=== PATIENT | female | born 1980 | race Caucasian/White ===

== ENCOUNTER → 2017-09-22 | Outpatient (CLI) | payer OTHER ==
--- NOTE | 2017-09-22 13:05 | CT ---
EXAMINATION TYPE: CT brain w con DATE OF EXAM: 09/22/2017 COMPARISON: NONE HISTORY: Dizziness, headache and balance issues without injury CT DLP: 1036 mGycm Automated Exposure Control for Dose Reduction was Utilized. TECHNIQUE: CT scan of the head is performed with IV contrast.,CT scan of the head is performed withou t and with with IV Contrast, patient injected with 100 mL of Omnipaque 300. FINDINGS: Noncontrast images show no acute intracranial hemorrhage or midline shift. The ventricles and sulci are within normal limits in size. No hydrocephalus. No suspicious extra axial fluid collec tion. No evidence of vasogenic edema or enhancing intracranial mass. Pituitary gland is unremarkable. Postcontrast images show no suspicious enhancing intraparenchymal mass. The globes are intact and th e visualized sinuses are clear. IMPRESSION: Unremarkable enhanced head CT exam with no evidence of intracranial enhancing mass. If th ere is further clinical concern MR could be performed.
== END | disposition home or self-care (01) ==
LOC: RADCTMAIN 12:15
PROVIDERS: ATTEND Internal Medicine
DX: R42 Dizziness and giddiness (principal)
CPT/HCPCS: 70460; Q9967

== ENCOUNTER 2017-09-29 08:33 | Emergency (ER) | payer OTHER ==
[2017-09-29] MEDS ORDERED: SODIUM CHLORIDE 0.9% 1,000 ML IV STA (09:01)
[2017-09-29] MEDS ORDERED: KETOROLAC 30 MG/ML 1 ML VIAL IVP STA (09:01)
[2017-09-29] MEDS ORDERED: RX INFO: IV CONTRAST WAS GIVEN 1 EACH MISC MISCELLANE PRN (09:01)
--- NOTE | 2017-09-29 09:51 | ED ---
Abdominal Pain HPI - General Chief Complaint: Abdominal Pain Stated Complaint: Abd.pain Time Seen by Provider: 09/29/17 08:49 Source: patient, RN notes reviewed Mode of arrival: ambulatory Limitations: no limitations - History of Present Illness Initial Comments: This a 37-year-old female presents emergency Department with chief complaint of right-sided abdominal pain, right back pain. 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 Patient states that her pain feels very similar. She states her last 2-3 days she's had unbearable symptoms. She did try Motrin yesterday. She denies any dysuria hematuria. Denies any vaginal bleeding vaginal discharge. Patient states that stating it makes this symptoms feel better if symptoms twisting bending does makes symptoms worse. She does have a history of herniated disc but states this feels different. Denies any bowel bladder incontinence or retention. Denies any saddle anesthesias or lower extremity paresthesias. believes that the symptoms are consistent with endometriosis. She has not had any current OB/ CAFETERIA ASSISTANT. - Related Data Home Medications Medication Instructions Recorded Confirmed HYDROcodone/APAP 5-325MG [Olga 1 tab PO BID PRN 09/29/17 09/29/17 5-325] Ibuprofen [Motrin] 800 mg PO TID PRN 09/29/17 09/29/17 Meclizine [Antivert] 25 mg PO DAILY PRN 09/29/17 09/29/17 Milk Thistle 150 mg PO DAILY 09/29/17 09/29/17 Niacin 500 mg PO DAILY 09/29/17 09/29/17 [place]-3 Fatty Acids/Fish Oil [Fish 1 cap PO DAILY 09/29/17 09/29/17 Oil 1,000 mg Softgel] clonazePAM [KlonoPIN] 0.5 mg PO DAILY PRN 09/29/17 09/29/17 Previous Rx's Medication Instructions Recorded Hydrocodone/Acetaminophen [Olga 1 tab PO Q6HR PRN #15 tab 09/29/17 5-325] Allergies Allergy/AdvReac Type Severity Reaction Status Date / Time No Known Allergies Allergy Verified 09/29/17 09:10 Review of Systems ROS Statement: Those systems with pertinent positive or pertinent negative responses have been documented in the HPI. ROS Other: All systems not noted in ROS Statement are negative. Past Medical History Additional Past Medical History / Comment(s): ENDOMETRIOSIS, bulging disk in lower back, degenerative disc disease, history of PVCs History of Any Multi-Drug Resistant Organisms: None Reported Additional Past Surgical History / Comment(s): OVARY, FALLOPIAN TUBE REMOVAL, endometriosis Past Anesthesia/Blood Transfusion Reactions: No Reported Reaction Past Psychological History: Anxiety, Depression, PTSD Smoking Status: Current every day smoker Past Alcohol Use History: Occasional Past Drug Use History: Cocaine, Marijuana, Prescription Drug Abuse - Past Family History Mother Family Medical History: AFIB, Congestive Heart Failure (CHF), COPD, Coronary Artery Disease (CAD), Dementia, Diabetes Mellitus Father History Unknown: Yes General Exam Limitations: no limitations General appearance: alert, in no apparent distress Head exam: Present: atraumatic, normocephalic, normal inspection Respiratory exam: Present: normal lung sounds bilaterally. Absent: respiratory distress, wheezes, rales, rhonchi, stridor Cardiovascular Exam: Present: regular rate, normal rhythm, normal heart sounds. Absent: systolic murmur, diastolic murmur, rubs, gallop, clicks GI/Abdominal exam: Present: soft, tenderness (Mild tenderness in the right side of the abdomen), normal bowel sounds. Absent: distended, guarding, rebound, rigid Back exam: Present: normal inspection, full ROM, tenderness, paraspinal tenderness. Absent: CVA tenderness (R), CVA tenderness (L), vertebral tenderness Skin exam: Present: warm, dry, intact, normal color. Absent: rash Course Vital Signs 09/29/17 08:45 Temperature 97.4 F L Pulse Rate 71 Respiratory 16 Rate Blood Pressure 137/90 O2 Sat by Pulse 97 Oximetry Medical Decision Making - Medical Decision Making 37-year-old female presented emergency Department chief complaint of right- sided abdominal and back pain. Patient does have a history of endometriosis. Patient does have a cyst noted on CT. Patient's prior CONVERTER SKIMMER Dr. Eugenio Valles discuss case with me from her prior history recommended patient be referred to on-call CONVERTER SKIMMER. Patient we given Dr. Ly's phone number. She does need insurance referral from primary care physician. - Lab Data Result diagrams: 09/29/17 10:12 09/29/17 10:12 Lab Results 09/29/17 09/29/17 09/29/17 Range/Units 10:12 10:12 10:12 WBC 5.9 (3.8-10.6) k/uL RBC 4.83 (3.80-5.40) m/uL Hgb 14.8 (11.4-16.0) gm/dL Hct 43.6 (34.0-46.0) % MCV 90.3 (80.0-100.0) fL MCH 30.7 (25.0-35.0) pg MCHC 34.0 (31.0-37.0) g/dL RDW 12.8 (11.5-15.5) % Plt Count 205 (150-450) k/uL Neutrophils % 46 % Lymphocytes % 41 % Monocytes % 7 % Eosinophils % 2 % Basophils % 0 % Neutrophils # 2.8 (1.3-7.7) k/uL Lymphocytes # 2.4 (1.0-4.8) k/uL Monocytes # 0.4 (0-1.0) k/uL Eosinophils # 0.1 (0-0.7) k/uL Basophils # 0.0 (0-0.2) k/uL PT (9.0-12.0) sec INR (<1.2) APTT (22.0-30.0) sec Sodium 143 (137-145) mmol/L Potassium 4.3 (3.5-5.1) mmol/L Chloride 105 (98-107) mmol/L Carbon Dioxide 26 (22-30) mmol/L Anion Gap 12 mmol/L BUN 21 H (7-17) mg/dL Creatinine 0.64 (0.52-1.04) mg/dL Est GFR (CKD-EPI)AfAm >90 (>60 ml/min/1.73 sqM) Est GFR (CKD-EPI)NonAf >90 (>60 ml/min/1.73 sqM) Glucose 88 (74-99) mg/dL Plasma Lactic Acid Hong (0.7-2.0) mmol/L Calcium 9.7 (8.4-10.2) mg/dL Total Bilirubin 0.5 (0.2-1.3) mg/dL AST 25 (14-36) U/L ALT 34 (9-52) U/L Alkaline Phosphatase 57 (38-126) U/L Total Protein 8.0 (6.3-8.2) g/dL Albumin 4.9 (3.5-5.0) g/dL Amylase 78 (30-110) U/L Lipase 128 (23-300) U/L Urine Color Urine Appearance (Clear) Urine pH (5.0-8.0) Ur Specific [place] (1.001-1.035) Urine Protein (Negative) Urine Glucose (UA) (Negative) Urine Ketones (Negative) Urine Blood (Negative) Urine Nitrite (Negative) Urine Bilirubin (Negative) Urine Urobilinogen (<2.0) mg/dL Ur Leukocyte Esterase (Negative) Urine HCG, Qual Not Detected (Not Detectd) 09/29/17 09/29/17 09/29/17 Range/Units 10:12 10:12 10:12 WBC (3.8-10.6) k/uL RBC (3.80-5.40) m/uL Hgb (11.4-16.0) gm/dL Hct (34.0-46.0) % MCV (80.0-100.0) fL MCH (25.0-35.0) pg MCHC (31.0-37.0) g/dL RDW (11.5-15.5) % Plt Count (150-450) k/uL Neutrophils % % Lymphocytes % % Monocytes % % Eosinophils % % Basophils % % Neutrophils # (1.3-7.7) k/uL Lymphocytes # (1.0-4.8) k/uL Monocytes # (0-1.0) k/uL Eosinophils # (0-0.7) k/uL Basophils # (0-0.2) k/uL PT 10.5 (9.0-12.0) sec INR 1.1 (<1.2) APTT 26.0 (22.0-30.0) sec Sodium (137-145) mmol/L Potassium (3.5-5.1) mmol/L Chloride (98-107) mmol/L Carbon Dioxide (22-30) mmol/L Anion Gap mmol/L BUN (7-17) mg/dL Creatinine (0.52-1.04) mg/dL Est GFR (CKD-EPI)AfAm (>60 ml/min/1.73 sqM) Est GFR (CKD-EPI)NonAf (>60 ml/min/1.73 sqM) Glucose (74-99) mg/dL Plasma Lactic Acid [place] 0.7 (0.7-2.0) mmol/L Calcium (8.4-10.2) mg/dL Total Bilirubin (0.2-1.3) mg/dL AST (14-36) U/L ALT (9-52) U/L Alkaline Phosphatase (38-126) U/L Total Protein (6.3-8.2) g/dL Albumin (3.5-5.0) g/dL Amylase (30-110) U/L Lipase (23-300) U/L Urine Color Light Yellow Urine Appearance Clear (Clear) Urine pH 6.0 (5.0-8.0) Ur Specific [place] 1.009 (1.001-1.035) Urine Protein Negative (Negative) Urine Glucose (UA) Negative (Negative) Urine Ketones Negative (Negative) Urine Blood Negative (Negative) Urine Nitrite Negative (Negative) Urine Bilirubin Negative (Negative) Urine Urobilinogen <2.0 (<2.0) mg/dL Ur Leukocyte Esterase Negative (Negative) Urine HCG, Qual (Not Detectd) Disposition Clinical Impression: Ovarian cyst, Abdominal pain Disposition: HOME SELF-CARE Condition: Stable Instructions: Abdominal Pain (ED) Additional Instructions: Please return to the Emergency Department if symptoms worsen or any other concerns. Prescriptions: Hydrocodone/Acetaminophen [Olga 5-325] 1 tab PO Q6HR PRN #15 tab PRN Reason: Pain Referrals: Jamar Sparks MD [Primary Care Provider] - 1-2 days Ac Iverson MD [STAFF PHYSICIAN] - 1-2 days Time of Disposition: 11:34
[2017-09-29 10:18] LABS: Appearance,Urine Clear (Clear); Basophils % (A) 0 %; Bilirubin,Urine Negative (Negative); Blood,Urine Negative (Negative); Color,Urine Light Yellow; Eosinophils # (A) 0.1 k/uL (0-0.7); Eosinophils % (A) 2 %; Glucose,Urine (UA) Negative (Negative); HCT 43.6 % (34.0-46.0); HGB 14.8 gm/dL (11.4-16.0); Ketones,Urine Negative (Negative); Leukocyte Esterase,Urine Negative (Negative); Lymphocytes # (A) 2.4 k/uL (1.0-4.8); Lymphocytes % (A) 41 %; MCH 30.7 pg (25.0-35.0); MCV 90.3 fL (80.0-100.0); Mean Platelet Volume 7.6; Monocytes # (A) 0.4 k/uL (0-1.0); Monocytes % (A) 7 %; Neutrophils # (A) 2.8 k/uL (1.3-7.7); Neutrophils % (A) 46 %; Nitrite,Urine Negative (Negative); Platelet Count 205 k/uL (150-450); Protein,Urine Negative (Negative); RBC 4.83 m/uL (3.80-5.40); RDW 12.8 % (11.5-15.5); Specific Gravity,Urine 1.009 (1.001-1.035); Urobilinogen,Urine <2.0 mg/dL (<2.0); WBC 5.9 k/uL (3.8-10.6)
[2017-09-29 10:26] LABS: INR 1.1 (<1.2); Prothrombin Time 10.5 sec (9.0-12.0)
[2017-09-29 10:33] LABS: ALT 34 U/L (9-52); AST 25 U/L (14-36); Albumin 4.9 g/dL (3.5-5.0); Alkaline Phosphatase 57 U/L (38-126); Amylase 78 U/L (30-110); Anion Gap 12 mmol/L; Blood Urea Nitrogen 21 mg/dL (7-17); Calcium 9.7 mg/dL (8.4-10.2); Carbon Dioxide 26 mmol/L (22-30); Chloride 105 mmol/L (98-107); Glucose 88 mg/dL (74-99); Lipase 128 U/L (23-300); Potassium 4.3 mmol/L (3.5-5.1); Sodium 143 mmol/L (137-145); Total Bilirubin 0.5 mg/dL (0.2-1.3)
[2017-09-29] MEDS ORDERED: ONDANSETRON 4 MG/2 ML VIAL IVP STA (10:45)
--- NOTE | 2017-09-29 11:07 | CT ---
EXAMINATION TYPE: CT abdomen pelvis w con DATE OF EXAM: 09/29/2017 COMPARISON: NONE HISTORY: RLQ pain with history of endometriosis CT DLP: 1000 mGycm CONTRAST: CT scan of the abdomen and pelvis is performed without Oral Contrast and with IV Contrast, patient in jected with 100 mL of Isovue 300. FINDINGS: LUNG BASES-: No visible nodule. No infiltrate. LIVER/GB: No calcified gallstones. No space occupying hepatic lesion. Biliary tree is of normal ca liber. PANCREAS: No inflammation. No distinct mass. SPLEEN: No splenic enlargement. No lesion seen. ADRENALS: No nodule. No thickening. KIDNEYS/BLADDER: No hydronephrosis. Nonobstructing calculus lower pole left kidney. No distinct benito l mass. Urinary bladder grossly unremarkable. BOWEL: Normal appendix. Normal bowel caliber. No inflammation. GENITAL ORGANS: The uterus is grossly unremarkable. Right ovarian cyst measuring 2.2 cm. Left ovary unremarkable. LYMPH NODES: No greater than 1cm abdominal or pelvic lymph nodes are appreciated. AORTA: No significant abnormality. OSSEOUS STRUCTURES: No significant abnormality is seen. OTHER: No significant additional abnormality is seen. IMPRESSION: 1. Nonobstructing calculus lower pole left kidney. 2. Probable functional right ovarian cyst.
[2017-09-29] MEDS ORDERED: HYDROcodone/APAP 5-325MG 1 EACH TAB PO STA (11:35)
[2017-09-29 11:46] VITALS: BP 138/87; PULSE 78; RESP 18; TEMP 97.5
== END 2017-09-29 11:56 | disposition home or self-care (01) ==
LOC: EC 08:33
DX: N83.201 Unspecified ovarian cyst, right side (principal); M51.36 Other intervertebral disc degeneration, lumbar region; F17.200 Nicotine dependence, unspecified, uncomplicated; Z87.42 Personal history of other diseases of the female genital tract; Z90.721 Acquired absence of ovaries, unilateral; Z79.899 Other long term (current) drug therapy
CPT/HCPCS: 36415; 80053; 82150; 83605; 83690; 85025; 85610; 85730; 81003; 81025; 74177; 99284; 96374; 96375; 96361 ×2; J2405; J1885; Q9967

== ENCOUNTER 2017-10-02 12:09 | Emergency (ER) | payer OTHER ==
[2017-10-02 13:49] LABS: Basophils % (A) 1 %; Eosinophils # (A) 0.2 k/uL (0-0.7); Eosinophils % (A) 2 %; HCT 42.4 % (34.0-46.0); HGB 14.3 gm/dL (11.4-16.0); Lymphocytes # (A) 2.8 k/uL (1.0-4.8); Lymphocytes % (A) 40 %; MCH 30.5 pg (25.0-35.0); MCHC 33.8 g/dL (31.0-37.0); MCV 90.3 fL (80.0-100.0); Mean Platelet Volume 7.4; Monocytes # (A) 0.4 k/uL (0-1.0); Monocytes % (A) 6 %; Neutrophils # (A) 3.4 k/uL (1.3-7.7); Neutrophils % (A) 49 %; Platelet Count 223 k/uL (150-450); RBC 4.69 m/uL (3.80-5.40); RDW 12.9 % (11.5-15.5)
[2017-10-02 13:52] LABS: Appearance,Urine Clear (Clear); Bilirubin,Urine Negative (Negative); Blood,Urine Negative (Negative); Color,Urine Colorless; Glucose,Urine (UA) Negative (Negative); Ketones,Urine Negative (Negative); Leukocyte Esterase,Urine Negative (Negative); Nitrite,Urine Negative (Negative); PH, Urine 6.5 (5.0-8.0); Protein,Urine Negative (Negative); Specific Gravity,Urine 1.006 (1.001-1.035); Urobilinogen,Urine <2.0 mg/dL (<2.0)
[2017-10-02 14:03] LABS: ALT 24 U/L (9-52); AST 23 U/L (14-36); Alkaline Phosphatase 57 U/L (38-126); Amylase 85 U/L (30-110); Anion Gap 15 mmol/L; Blood Urea Nitrogen 22 mg/dL (7-17); Calcium 9.8 mg/dL (8.4-10.2); Carbon Dioxide 25 mmol/L (22-30); Chloride 103 mmol/L (98-107); Glucose 89 mg/dL (74-99); Lipase 196 U/L (23-300); Potassium 4.2 mmol/L (3.5-5.1); Sodium 143 mmol/L (137-145); Total Bilirubin 0.4 mg/dL (0.2-1.3); Total Protein 8.4 g/dL (6.3-8.2)
[2017-10-02] MEDS ORDERED: ONDANSETRON 4 MG/2 ML VIAL IVP STA (14:58)
--- NOTE | 2017-10-02 15:04 | ED ---
Female Urogenital HPI - General Chief complaint: Urogenital Stated complaint: Urogenital, ABd Pain Time Seen by Provider: 10/02/17 14:47 Source: patient Mode of arrival: ambulatory Limitations: no limitations - History of Present Illness Initial comments: 37-year-old female with history of endometriosis and left oophorectomy presenting with right lower quadrant sharp stabbing abdominal pain that radiates the right flank, is constant, is not alleviated or exacerbated by anything, and is accompanied by nausea. States she was in the emergency department on 09/29 and was diagnosed with a right ovarian cyst. Patient states she has been trying to follow up with [facility] INSPECT[facility] as instructed however has been unable to obtain appointment. She states she is unable to tolerate the pain anymore. Last Menstrual Period: 08/07/17 - Related Data Home Medications Medication Instructions Recorded Confirmed Ibuprofen [Motrin] 800 mg PO TID PRN 09/29/17 10/02/17 Meclizine [Antivert] 25 mg PO DAILY PRN 09/29/17 10/02/17 Milk Thistle 150 mg PO DAILY 09/29/17 10/02/17 Niacin 500 mg PO DAILY 09/29/17 10/02/17 [place]-3 Fatty Acids/Fish Oil [Fish 1 cap PO DAILY 09/29/17 10/02/17 Oil 1,000 mg Softgel] clonazePAM [KlonoPIN] 0.5 mg PO DAILY PRN 09/29/17 10/02/17 Previous Rx's Medication Instructions Recorded Hydrocodone/Acetaminophen [[place] 1 tab PO Q6HR PRN #15 tab 09/29/17 5-325] Ondansetron Odt [Zofran Odt] 4 mg PO Q8HR PRN #10 tab 10/02/17 Allergies Allergy/AdvReac Type Severity Reaction Status Date / Time No Known Allergies Allergy Verified 10/02/17 15:00 Review of Systems ROS Statement: Those systems with pertinent positive or pertinent negative responses have been documented in the HPI. Review of Systems Constitutional: Denies fever, chills Eyes: Denies change in vision, Denies pain Ears, nose, mouth, throat: Denies headaches, Denies sore throat Cardiovascular: Denies chest pain. Denies palpitations Respiratory: Denies shortness of breath, Denies cough Gastrointestinal: Positive abdominal pain and nausea. Denies vomiting, diarrhea. Genitourinary: Denies hematuria, Denies infections Musculoskeletal: Denies pain, Denies swelling Integumentary: Denies rash Neurological: Denies headache, focal weakness, focal numbness Psychiatric: Denies anxiety, Denies depression Hematologic/Lymphatic: Denies easy bleeding or bruising ROS Other: All systems not noted in ROS Statement are negative. Past Medical History Additional Past Medical History / Comment(s): ENDOMETRIOSIS, bulging disk in lower back, degenerative disc disease, history of PVCs History of Any Multi-Drug Resistant Organisms: None Reported Additional Past Surgical History / Comment(s): OVARY, FALLOPIAN TUBE REMOVAL, endometriosis Past Anesthesia/Blood Transfusion Reactions: No Reported Reaction Past Psychological History: Anxiety, Depression, PTSD Smoking Status: Former smoker Past Alcohol Use History: Occasional Past Drug Use History: Cocaine, Marijuana, Prescription Drug Abuse - Past Family History Mother Family Medical History: AFIB, Congestive Heart Failure (CHF), COPD, Coronary Artery Disease (CAD), Dementia, Diabetes Mellitus Father History Unknown: Yes General Exam - General Exam Comments Initial Comments: General: Awake, alert, No acute Distress HENT: Normocephalic. Atraumatic Eyes: PERRL. EOMI. No scleral icterus. No injected conjunctiva Neck: Full ROM Chest/Lungs: Clear to auscultation bilaterally. No wheezing, rhonchi, or rales Cardiac: Regular rate, rhythm. No murmurs or rubs Abdomen/GI: Soft, nontender, nondistended. No rebound, guarding, or rigidity. Musculoskeletal: Full ROM Skin: Warm, dry, intact Neurologic: A/Ox3, no weakness, no sensory deficit, no abdnormal gait, no coordination deficit Psych: Tearful. Anxious appearing Limitations: no limitations Course Vital Signs 10/02/17 12:20 Temperature 97.4 F L Pulse Rate 86 Respiratory 18 Rate Blood Pressure 133/90 O2 Sat by Pulse 98 Oximetry Medical Decision Making - Medical Decision Making 37-year-old female presenting with abdominal pain. Initial exam the patient is awake, alert, and tearful. She is anxious appearing. Vital signs are stable and her abdomen is nontender and non-peritoneal. [id number] Iverson regarding patient. He states he has not actually seen this patient before but his group is nitric acid concentrator operator for today. The patient's abdomen is nontender on exam. She has no leukocytosis, fever, or abnormal vital signs. Low likelihood appendicitis. She has no IBD history or abdnormal bowel movements at this time. Discussed with patient who states she is comfortable seeing Dr. Iverson within the next 1-2 days. The patient state she has Linden at home and does need a new prescription but would like an rx for Zofran because the Linden causes her nausea. Patient spoke with Dr. Iverson's office and made an appointment. At this time no further emergent workup is indicated. Patient is stable for outpatient follow up of her abdominal pain. There are no signs of life threatening infection. She was given return to ED instructions and discharged in stable condition. - Lab Data Result diagrams: 10/02/17 13:40 10/02/17 13:40 Lab Results 10/02/17 10/02/17 10/02/17 Range/Units 13:40 13:40 13:40 WBC 7.0 (3.8-10.6) k/uL RBC 4.69 (3.80-5.40) m/uL Hgb 14.3 (11.4-16.0) gm/dL Hct 42.4 (34.0-46.0) % MCV 90.3 (80.0-100.0) fL MCH 30.5 (25.0-35.0) pg MCHC 33.8 (31.0-37.0) g/dL RDW 12.9 (11.5-15.5) % Plt Count 223 (150-450) k/uL Neutrophils % 49 % Lymphocytes % 40 % Monocytes % 6 % Eosinophils % 2 % Basophils % 1 % Neutrophils # 3.4 (1.3-7.7) k/uL Lymphocytes # 2.8 (1.0-4.8) k/uL Monocytes # 0.4 (0-1.0) k/uL Eosinophils # 0.2 (0-0.7) k/uL Basophils # 0.0 (0-0.2) k/uL Sodium 143 (137-145) mmol/L Potassium 4.2 (3.5-5.1) mmol/L Chloride 103 (98-107) mmol/L Carbon Dioxide 25 (22-30) mmol/L Anion Gap 15 mmol/L BUN 22 H (7-17) mg/dL Creatinine 0.60 (0.52-1.04) mg/dL Est GFR (CKD-EPI)AfAm >90 (>60 ml/min/1.73 sqM) Est GFR (CKD-EPI)NonAf >90 (>60 ml/min/1.73 sqM) Glucose 89 (74-99) mg/dL Calcium 9.8 (8.4-10.2) mg/dL Total Bilirubin 0.4 (0.2-1.3) mg/dL AST 23 (14-36) U/L ALT 24 (9-52) U/L Alkaline Phosphatase 57 (38-126) U/L Total Protein 8.4 H (6.3-8.2) g/dL Albumin 5.0 (3.5-5.0) g/dL Amylase 85 (30-110) U/L Lipase 196 (23-300) U/L Urine Color Urine Appearance (Clear) Urine pH (5.0-8.0) Ur Specific [place] (1.001-1.035) Urine Protein (Negative) Urine Glucose (UA) (Negative) Urine Ketones (Negative) Urine Blood (Negative) Urine Nitrite (Negative) Urine Bilirubin (Negative) Urine Urobilinogen (<2.0) mg/dL Ur Leukocyte Esterase (Negative) Urine HCG, Qual Not Detected (Not Detectd) 10/02/17 Range/Units 13:40 WBC (3.8-10.6) k/uL RBC (3.80-5.40) m/uL Hgb (11.4-16.0) gm/dL Hct (34.0-46.0) % MCV (80.0-100.0) fL MCH (25.0-35.0) pg MCHC (31.0-37.0) g/dL RDW (11.5-15.5) % Plt Count (150-450) k/uL Neutrophils % % Lymphocytes % % Monocytes % % Eosinophils % % Basophils % % Neutrophils # (1.3-7.7) k/uL Lymphocytes # (1.0-4.8) k/uL Monocytes # (0-1.0) k/uL Eosinophils # (0-0.7) k/uL Basophils # (0-0.2) k/uL Sodium (137-145) mmol/L Potassium (3.5-5.1) mmol/L Chloride (98-107) mmol/L Carbon Dioxide (22-30) mmol/L Anion Gap mmol/L BUN (7-17) mg/dL Creatinine (0.52-1.04) mg/dL Est GFR (CKD-EPI)AfAm (>60 ml/min/1.73 sqM) Est GFR (CKD-EPI)NonAf (>60 ml/min/1.73 sqM) Glucose (74-99) mg/dL Calcium (8.4-10.2) mg/dL Total Bilirubin (0.2-1.3) mg/dL AST (14-36) U/L ALT (9-52) U/L Alkaline Phosphatase (38-126) U/L Total Protein (6.3-8.2) g/dL Albumin (3.5-5.0) g/dL Amylase (30-110) U/L Lipase (23-300) U/L Urine Color Colorless Urine Appearance Clear (Clear) Urine pH 6.5 (5.0-8.0) Ur Specific [place] 1.006 (1.001-1.035) Urine Protein Negative (Negative) Urine Glucose (UA) Negative (Negative) Urine Ketones Negative (Negative) Urine Blood Negative (Negative) Urine Nitrite Negative (Negative) Urine Bilirubin Negative (Negative) Urine Urobilinogen <2.0 (<2.0) mg/dL Ur Leukocyte Esterase Negative (Negative) Urine HCG, Qual (Not Detectd) Disposition Clinical Impression: Ovarian cyst, Abdominal pain Disposition: HOME SELF-CARE Condition: Good Instructions: Abdominal Pain (ED) Additional Instructions: Return to ED if develop fever, vomiting, or worsening abdominal pain. Prescriptions: Ondansetron Odt [Zofran Odt] 4 mg PO Q8HR PRN #10 tab PRN Reason: Nausea And Vomiting Referrals: Jamar Sparks MD [Primary Care Provider] - 1-2 days
[2017-10-02] MEDS ORDERED: MORPHINE SULFATE/PF 10MG/10ML VL IVP STA (15:36)
[2017-10-02 16:42] VITALS: BP 127/84; PULSE 82; RESP 17; TEMP 97.7
[2017-10-02] MEDS ORDERED: KETOROLAC 30 MG/ML 1 ML VIAL IVP SCH (18:00)
== END 2017-10-02 16:41 | disposition home or self-care (01) ==
LOC: EC 12:09
DX: N83.201 Unspecified ovarian cyst, right side (principal); R11.0 Nausea; Z87.42 Personal history of other diseases of the female genital tract; Z79.899 Other long term (current) drug therapy; Z87.891 Personal history of nicotine dependence
CPT/HCPCS: 99284; 96374; 96375 ×2; 36415; 80053; 82150; 83690; 85025; 81003; 81025; J2405; J1885; J2270

== ENCOUNTER → 2017-11-21 | Outpatient (CLI) | payer OTHER ==
[2017-11-21 13:02] LABS: Basophils % (A) 1 %; Eosinophils # (A) 0.1 k/uL (0-0.7); Eosinophils % (A) 2 %; HCT 39.6 % (34.0-46.0); HGB 13.6 gm/dL (11.4-16.0); Lymphocytes # (A) 1.9 k/uL (1.0-4.8); Lymphocytes % (A) 32 %; MCH 31.5 pg (25.0-35.0); MCHC 34.4 g/dL (31.0-37.0); MCV 91.8 fL (80.0-100.0); Mean Platelet Volume 7.5; Monocytes # (A) 0.5 k/uL (0-1.0); Monocytes % (A) 9 %; Neutrophils # (A) 3.2 k/uL (1.3-7.7); Neutrophils % (A) 54 %; Platelet Count 219 k/uL (150-450); RBC 4.32 m/uL (3.80-5.40); WBC 5.9 k/uL (3.8-10.6)
== END | disposition home or self-care (01) ==
LOC: LABPAT 12:39
PROVIDERS: ATTEND Obstetrics & Gynecology
DX: Z01.812 Encounter for preprocedural laboratory examination (principal); N80.9 Endometriosis, unspecified; R10.2 Pelvic and perineal pain; G89.29 Other chronic pain
CPT/HCPCS: 36415; 85025

== ENCOUNTER 2017-12-05 07:44 | Day surgery (SDC) | payer OTHER ==
[2017-11-30 16:02] VITALS: BMI 23.6
[~2017-12-05 07:44] MED LIST: DEXAMETHASONE SOD PHOSPHATE 10 MG/ML 1 ML VIAL IV ONE; LACTATED RINGERS 1,000 ML IV SCH; LIDOCAINE 1% 20 ML VIAL (10MG/ML) FOR IV START INTRADERMA PRN; MIDAZOLAM 2 MG/2 ML VIAL IV PRN; SCOPOLAMINE 1.5MG/72HR PATCH TRANSDERM ONE; ceFAZolin IN SWFI 2 GM/20 ML SYRINGE IVP ONE; fentaNYL (PF) 50 MCG/ML 2 ML AMP IV PRN
[2017-12-05] MEDS: ONDANSETRON 4 MG/2 ML VIAL IVP ONE ×2 (08:49→10:19)
[2017-12-05 08:56] VITALS: RESP 16
[2017-12-05] MEDS ORDERED: fentaNYL (PF) 50 MCG/ML 2 ML AMP ONE (09:05)
[2017-12-05] MEDS ORDERED: ROCURONIUM BROMIDE 10 MG/ML 10 ML VIAL IV ONE (09:05)
[2017-12-05] MEDS ORDERED: PROPOFOL 10 MG/ML 20 ML VIAL IV ONE (09:05)
[2017-12-05] MEDS ORDERED: SUCCINYLCHOLINE CHLORIDE 100 MG/5 ML SYR IV ONE (09:05)
[2017-12-05] MEDS ORDERED: MIDAZOLAM 2 MG/2 ML VIAL ONE (09:05)
[2017-12-05] MEDS ORDERED: LIDOCAINE 1% INJ 10MG/ML (20 ML MDV) ONE (09:05)
[2017-12-05] MEDS ORDERED: IBUPROFEN 600 MG TAB PO PRN (09:08)
[2017-12-05] MEDS ORDERED: METOCLOPRAMIDE 5 MG/ML 2 ML VIAL IVP PRN (09:08)
[2017-12-05] MEDS ORDERED: Acetaminophen-Codeine 300-30mg TAB PO PRN ×2 (09:08)
[2017-12-05] MEDS ORDERED: diphenhydrAMINE 50 MG/ML 1 ML VIAL IVP PRN (09:08)
[2017-12-05] MEDS ORDERED: SIMETHICONE 80 MG CHEWABLE PO PRN (09:08)
[2017-12-05] MEDS ORDERED: KETOROLAC 30 MG/ML 1 ML VIAL IVP PRN (09:08)
[2017-12-05] MEDS ORDERED: ONDANSETRON 4 MG/2 ML VIAL IVP PRN (09:08)
[2017-12-05] MEDS ORDERED: LACTATED RINGERS 1,000 ML IV SCH (09:15)
[2017-12-05] MEDS ORDERED: BUPIVACAINE (PF) 0.5% 30 ML VIAL SQ ONE (09:27)
[2017-12-05] MEDS ORDERED: METHYLENE BLUE 10 MG/ML (10 ML VIAL) INJ ONE (09:27)
[2017-12-05] MEDS ORDERED: LACTATED RINGERS 1,000 ML IV ONE (09:46)
--- NOTE | 2017-12-05 09:49 | P.OP ---
Date of Procedure: 12/05/17 Preoperative Diagnosis: None. History of endometriosis #2. Chronic pelvic pain Postoperative Diagnosis: Same plus #3. 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 Patent right fallopian tube Procedure(s) Performed: #1. Diagnostic laparoscopy #2. Chromopertubation Anesthesia: ALONAA Surgeon: Ac Iverson Estimated Blood Loss (ml): 5 IV fluids (ml): 800 Urine output (ml): 150 Pathology: none sent Condition: stable Disposition: PACU Operative Findings: Preoperative pelvic examination under anesthesia demonstrated a roughly 4 week retroverted and flexed uterus which was somewhat mobile in nature. Intraoperatively, there was no significant endometriosis noted anywhere in the pelvis though the cul-de-sac was somewhat adhesed near the cervix to the rectum although not completely obliterated. The left tube and ovary were absent surgically. The right tube and ovary were normal in appearance with no evidence of endometriosis present. There was perhaps one small powder burn ho on the left cornu of the uterus which was left intact. Methylene blue diluted with normal saline was passed easily through the right fallopian tube with free flow into the pelvis. Description of Procedure: The patient was prepped and draped in usual fashion after general endotracheal anesthesia was administered by the anesthesiologist. A speculum was placed in the anterior lip of the cervix grasped with a single-tooth tenaculum allowing insertion of a kroner uterine manipulator without difficulty after the uterus was sounded to 8 cm in depth. The speculum was removed and the bladder drained of approximately 150 mL of clear tylor urine. Attention was then turned to the abdomen where a 5 mm incision was made in a vertical fold of the umbilicus allowing insertion of a 5 mm optical trocar under direct visualization without difficulty. A pneumoperitoneum was then established. Trendelenburg positioning was utilized to have an early view into the pelvis which appeared relatively free. A site was selected through a pre-existing scar approximately 3-4 cm above the pubic symphysis in the midline where a 5 mm incision was made in the transverse plane through the scar allowing insertion of a 5 mm optical trocar under direct visual station without difficulty. The blunt probe was utilized to sweep the bowel from the pelvis along with further Trendelenburg positioning. Thorough exploration of the pelvis demonstrated the findings as above with some scarring deep in the cul-de-sac between the rectum and the posterior cervix. There were no obvious endometriotic implants anywhere aside from a small powder burn lesion on the left cornu. The left tube and ovary were surgically absent while the right tube and ovary were both free and free of any obvious endometriosis. The appendix, large, and small bowel were entirely normal to inspection. Diluted methylene blue was then injected slowly through the kroner manipulator and passed easily through the fallopian tube fluid freely into the pelvis. After thorough documentation of the findings, the secondary trocar site was removed under direct visualization and the pneumoperitoneum evacuated to the primary trocar site. The trocar was then removed and the skin incisions were closed with interrupted subcuticular stitches of 4-0 Vicryl which were then injected with a total of 10 mL of half percent Marcaine without epinephrine equally divided between the 2 incisions. Estimated blood loss for the case was 5 mL or less. There were no complications. All sponge, instrument, and needle counts were correct. The patient tolerated the procedure well proceeded to the recovery room in stable condition.
[2017-12-05] MEDS: HYDROmorphone 0.5 MG/0.5 ML SYRINGE IVP ONE ×3 (10:00→10:18)
[2017-12-05] MEDS ORDERED: KETOROLAC 30 MG/ML 1 ML VIAL IVP ONE (10:00)
[2017-12-05 10:06] VITALS: TEMP 97.3
[2017-12-05] MEDS ORDERED: ONDANSETRON 4 MG/2 ML VIAL IVP ONE (11:38)
[2017-12-05 12:07] VITALS: BP 111/79; PULSE 73
== END 2017-12-05 12:19 | disposition home or self-care (01) ==
LOC: OR 07:44
PROVIDERS: ATTEND Obstetrics & Gynecology
DX: G89.29 Other chronic pain (principal); R10.2 Pelvic and perineal pain; Z87.42 Personal history of other diseases of the female genital tract; Z79.899 Other long term (current) drug therapy; Z87.891 Personal history of nicotine dependence; F41.9 Anxiety disorder, unspecified; Z79.891 Long term (current) use of opiate analgesic
CPT/HCPCS: 81025; 49320; J2250; J1100; J2405; J2001; Q9968; J3010; J1885; J0330; J2704; J1170; J0690

== ENCOUNTER → 2018-09-25 | Outpatient (CLI) | payer OTHER ==
[2018-09-25 08:41] VITALS: BP 118/83; PULSE 71; RESP 16; TEMP 97.9; BMI 22.3
--- NOTE | 2018-09-25 09:35 | P.PN ---
Progress Note - Text Progress Note Date: 09/25/18 Chief Complaint: menopausal symptoms getting progressively worse over the past 6 months. HPI: This is a 38-year-old G0 with an LMP of April 2018. The patient was previously on oral contraceptives because of her history of endometriosis. The patient states she discontinued them about 2 years ago because of weight gain. She did lose weight after discontinuing the control pills menstrual periods were about every 2 months off of the control pills. She states her menstrual periods were terrible without the control pills. She stopped having periods after April 2018. She started having hot flashes and night sweats which have gradually increased and now become severe and frequent. She states she has hot flashes about every 15 to 30 minutes. She becomes very sweaty. She also has noticed an increase in anxiety and anger. She also gets sad easily and cries easily. She is also had a problem focusing. She denies any suicidal thoughts. She has not been sexually active for more than 3 years. ROS: she has lost about 15 pounds over the last 3 years. She denies respiratory, cardiac, or G.I. problems. PE: Blood pressure: 118/83, Height: 5'4", Weight: hundred 30 pounds, Temperature: 7.9, Pulse: 71. Respiratory rate 16, pulse oximeter 99%. This is a well developed, well nourished, white female who is alert and orientedx3, in no acute distress. Abdomen : soft nontender without palpable masses. Abdomen is nondistended. Pelvic exam: normal external genitalia. There is no cervical motion tenderness. The uterus is slightly retroverted, noncovered size, and nontender. There are no palpable adnexal masses or tenderness. Operative report from 12/05/[address] Iverson: L/S: normal right ovary, absent left ovary consistent with previous oophorectomy. Impression: 1. 38-year-old female status post LSO for an endometrioma in 2009 with a 6 month history of secondary amenorrhea and worsening vasomotor symptoms. Probable premature menopause. 2. Differential diagnosis will also include thyroid dysfunction and ovulation. 3. She also has various other symptoms including anxiety, anger, sadness, and difficulty focusing. These are most likely consistent with premature menopause. Plan: 1. We have had a long discussion regarding her symptoms as well as the possibility of premature menopause. She states she would be interested in low dose HRT if this is because of an early menopause. We've discussed possible risks of HRT including the possible increased risk for heart attack, stroke, and breast cancer. 2. Blood tests today will include: FSH, estradiol, TSH, and CBC. 3. If the blood tests are consistent with the menopause, I will start her on low-dose HRT. If not consistent with the menopause, consider trial of an SSRI. 4. She will return in approximately one month for her annual examination and for reevaluation of her symptoms. Time spent with the patient: 25 minutes
[2018-09-25 10:17] LABS: Basophils % (A) 1 %; Eosinophils # (A) 0.1 k/uL (0-0.7); Eosinophils % (A) 2 %; HCT 41.4 % (34.0-46.0); HGB 13.8 gm/dL (11.4-16.0); Lymphocytes # (A) 1.9 k/uL (1.0-4.8); Lymphocytes % (A) 36 %; MCHC 33.4 g/dL (31.0-37.0); MCV 92.8 fL (80.0-100.0); Mean Platelet Volume 7.3; Monocytes # (A) 0.4 k/uL (0-1.0); Monocytes % (A) 7 %; Neutrophils # (A) 2.7 k/uL (1.3-7.7); Neutrophils % (A) 52 %; Platelet Count 204 k/uL (150-450); RBC 4.46 m/uL (3.80-5.40); RDW 12.7 % (11.5-15.5); WBC 5.3 k/uL (3.8-10.6)
--- NOTE | 2018-09-26 12:37 | P.PN ---
Progress Note - Text Progress Note Date: 09/26/18 OUTPATIENT FOLLOW-UP NOTE TEST(S)/RESULTS: test results from 09/25/2018 include FSH of 147.4, estradiol 14.7, TSH normal, CBC normal. METHOD OF NOTIFICATION: the patient was notified by phone. PATIENT COMMENTS: the patient is very interested in starting HRT. DIAGNOSIS: premature menopause at age 38. DISCUSSION: we have had a long discussion regarding possible risks of HRT including possible risks of blood clots, heart attack, stroke and breast cancer. The patient understands these things and would like to proceed with HRT because of her severe menopausal symptoms. PLAN: the patient will will be started on Estrace 1 mg daily and micronized progesterone 100 mg daily. She will call she has any problems. She will follow-up in one month for a recheck.
== END | disposition home or self-care (01) ==
LOC: WWCWWP 08:08
PROVIDERS: ATTEND Obstetrics & Gynecology
DX: N91.1 Secondary amenorrhea (principal); N95.1 Menopausal and female climacteric states
CPT/HCPCS: 36415; 82670; 83001; 84443; 85025

== ENCOUNTER → 2018-11-27 | Outpatient (CLI) | payer OTHER ==
[2018-11-27 13:15] VITALS: BP 117/75; PULSE 60; RESP 16; TEMP 98.5; BMI 22.6
--- NOTE | 2018-11-27 13:59 | P.HPOB ---
History of Present Illness H&P Date: 11/27/18 Chief Complaint: The patient is here for her routine gynecologic exam. This is a 38-year-old G0 within LMP of 04/2018. The patient was seen about 2 months ago because of menopausal symptoms including amenorrhea, hot flashes, difficulty sleeping, worsening anxiety, moodiness, and cry easily. FSH done on 09/25/2018 was 147, consistent with premature menopause. She was started on Estrace 1 mg daily and micronized progesterone 100 mg daily. She states her hot flashes have improved by about 40%. She denies any vaginal bleeding. She continues to have some difficulty sleeping and is crying easily. She has a history of depression and had used many different antidepression medications in the past. SSRI type medications did not work well I made her feel sick. She states she has done well with Remeron in the past. She denies any suicidal ideation. She states she has not felt comfortable speaking with her primary care physician about her mental health and feels that he did not take her seriously when speaking about this. She has recently noticed some left breast tenderness in the upper outer quadrant during the past 2 weeks. She states it feels lumpy in this area. Review of Systems The patient's weight has been stable over the last year. She denies respiratory, cardiac, or G.I. problems. Past Medical History Additional Past Medical History / Comment(s): bulging disk in lower back, de generative disc disease, history of PVCs. 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 She has a history of endometriosis and is status post LSO and endometrioma in 2009. History of Any Multi-Drug Resistant Organisms: None Reported Additional Past Surgical History / Comment(s): Left OVARY, FALLOPIAN TUBE REMOVAL for endometriosis 2009. Laparoscopy with adhesiolysis 2017. Past Anesthesia/Blood Transfusion Reactions: No Reported Reaction Past Psychological History: Anxiety, Depression, PTSD Additional Psychological History / Comment(s): Patient has history of previous suicide attempts with mental health inpatient admissions. Smoking Status: Former smoker Past Alcohol Use History: None Reported Past Drug Use History: Cocaine, Marijuana, Prescription Drug Abuse Additional Drug Use History / Comment(s): Denies any current drug use. 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 The patient is single and has had homosexual and heterosexual relationships in the past. She is currently not seeing anybody at this time. - Past Family History Mother Family Medical History: AFIB, Congestive Heart Failure (CHF), COPD, Coronary Artery Disease (CAD), Dementia, Diabetes Mellitus Additional Family Medical History / Comment(s): Maternal aunt had breast cancer. Father History Unknown: Yes Medications and Allergies Home Medications Medication Instructions Recorded Confirmed Type Ibuprofen [Motrin] 800 mg PO TID PRN 09/29/17 11/27/18 History clonazePAM [KlonoPIN] 0.5 mg PO DAILY PRN 09/29/17 11/27/18 History Estradiol [Estrace] 1 mg PO DAILY #60 tab 11/20/18 11/27/18 Rx Progesterone, Micronized 100 mg PO DAILY #60 capsule 11/20/18 11/27/18 Rx [Progesterone] Allergies Allergy/AdvReac Type Severity Reaction Status Date / Time No Known Allergies Allergy Verified 11/27/18 13:06 Exam Vital Signs Temp Pulse Resp BP Pulse Ox 11/27/18 13:07 98.5 F 60 16 117/75 100 Intake and Output 11/26/18 11/27/18 11/27/18 22:59 06:59 14:59 Other: Weight 59.874 kg Height 5'4", weight 132 pounds, BMI 22.7. This is a well-developed well-nourished weight female who is alert and oriented times 3 in no acute distress. HEENT: Within normal limits. NECK: Supple without mass or thyromegaly. CHEST AND LUNGS: Clear to auscultation. HEART: Regular rate and rhythm. BREASTS: Are without mass or discharge. There is minimal tenderness in the left upper outer quadrant without palpable mass. There is moderate fibrous tissue throughout both breasts consistent with fibrocystic changes without a discrete mass. AXILLARY EXAM: Negative for adenopathy. BACK: Negative for CVA tenderness. ABDOMEN: Soft, nontender, without palpable masses. PELVIC EXAM: Normal external genitalia. Cervix and vagina appear normal. There is no unusual discharge. There is no evidence of prolapse. The uterus is mi dposition, nongravid size and nontender. There are no palpable adnexal masses or tenderness. RECTAL EXAM: negative for mass or tenderness. EXTREMITIES: Nontender. IMPRESSION: 1. 38-year-old female with history of premature menopause and associated menopausal symptoms who has had mild improvement with continuous HRT. 2. Two-week history of left breast tenderness without palpable mass on exam to day. 3. Worsening of anxiety, mood disorder and crying easily with the onset of her menopausal symptoms. PLAN: 1. Pap smear was performed. 2. Self breast awareness was discussed with the patient. The patient was advised to decrease caffeine intake. She will call in one month if her breast symptoms have not resolved. 3. we will increase her Estrace to 1.5 mg daily. She will continue on the same dose of micronized progesterone 100 mg daily. The electronic prescription [id number]. 4. I have recommended that she find a primary care physician that she feels comfortable talking to about mental health issues. I've also recommended that she consider seeing a psychiatrist if her symptoms are not improving or if symptoms worsen. 5. She was advised to return in one year for her annual well woman exam and PRN.
== END | disposition home or self-care (01) ==
LOC: WWCWWP 11:55
PROVIDERS: ATTEND Obstetrics & Gynecology
DX: Z53.9 Procedure and treatment not carried out, unspecified reason (principal)

== ENCOUNTER → 2020-08-05 | Outpatient (CLI) | payer OTHER ==
[2020-08-05 09:42] VITALS: BP 126/89; PULSE 76; RESP 18; TEMP 98.1
--- NOTE | 2020-08-05 10:35 | P.HPOB ---
History of Present Illness H&P Date: 08/05/20 Chief Complaint: The patient is here for her routine gynecologic exam. This is a 39-year-old G0 with an LMP of April 2018. The patient was found to be menopausal confirmed with an FSH test in 2019. The patient was started on HRT because of significant menopausal symptoms including hot flashes, difficulty sleeping and mood changes. She states she has had dramatic improvement with all of the symptoms and is doing well on estradiol 1.5 mg and progesterone 100 mg daily. After starting HRT she states she had occasional spotting which has now been very rare. She is without gynecologic complaints. Review of Systems The patient has lost 12 pounds over the last year and a half. She denies respiratory, cardiac, or G.I. problems. Past Medical History Additional Past Medical History / Comment(s): bulging disk in lower back, degenerative disc disease, history of PVCs. 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 She has a history of endometriosis and is status post LSO and endometrioma in 2009. History of Any Multi-Drug Resistant Organisms: None Reported Additional Past Surgical History / Comment(s): Left OVARY, FALLOPIAN TUBE REMOVAL for endometriosis 2009. Laparoscopy with adhesiolysis 2017. Past Anesthesia/Blood Transfusion Reactions: No Reported Reaction Past Psychological History: Anxiety, Depression, PTSD Additional Psychological History / Comment(s): Patient has history of previous suicide attempts with mental health inpatient admissions. Smoking Status: Former smoker Past Alcohol Use History: None Reported Past Drug Use History: Cocaine, Marijuana, Prescription Drug Abuse Additional Drug Use History / Comment(s): Denies any current drug use for many years. 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 She is single and has had homosexual and heterosexual relationship's in the past. She is currently not seeing anybody at this time. - Past Family History Mother Family Medical History: AFIB, Congestive Heart Failure (CHF), COPD, Coronary Artery Disease (CAD), Dementia, Diabetes Mellitus Additional Family Medical History / Comment(s): Maternal aunt had breast cancer. Father History Unknown: Yes Medications and Allergies Home Medications Medication Instructions Recorded Confirmed Type Ibuprofen [Motrin] 800 mg PO TID PRN 09/29/17 08/05/20 History clonazePAM [KlonoPIN] 1 mg PO DAILY PRN 09/29/17 08/05/20 History estradioL [Estrace] 1.5 mg PO DAILY #90 tab 11/27/18 08/05/20 Rx Progesterone, Micronized 100 mg PO DAILY #90 capsule 01/22/19 08/05/20 Rx [Progesterone] Ergocalciferol (Vitamin D2) 1,250 mcg PO WEEKLY 08/05/20 08/05/20 History [Vitamin D2 (50,000 Iu)] Allergies Allergy/AdvReac Type Severity Reaction Status Date / Time No Known Allergies Allergy Verified 08/05/20 09:22 Exam Vital Signs Temp Pulse Resp BP Pulse Ox 08/05/20 09:39 98.1 F 76 18 126/89 98 Intake and Output 08/04/20 08/05/20 08/05/20 22:59 06:59 14:59 Other: Weight 54.431 kg Height 5 feet 3-1/2 inches, weight 120 pounds, BMI 20.9. This is a well-developed well-nourished white female who is alert and oriented times 3 in no acute distress. HEENT: Within normal limits. NECK: Supple without mass or thyromegaly. CHEST AND LUNGS: Clear to auscultation. HEART: Regular rate and rhythm. BREASTS: Are without mass or discharge. AXILLARY EXAM: Negative for adenopathy. BACK: Negative for CVA tenderness. ABDOMEN: Soft, nontender, without palpable masses. PELVIC EXAM: Normal external genitalia. Cervix and vagina appear normal. There is no unusual discharge. There is no evidence of prolapse. The uterus is posterior, nongravid size and nontender. There are no palpable adnexal masses or tenderness. RECTAL EXAM: negative for mass or tenderness and is negative for occult blood. EXTREMITIES: Nontender. IMPRESSION: 1. 39-year-old postmenopausal female with history of premature menopause with significant improvement with menopausal symptoms on continuous HRT. PLAN: 1. Pap smear was deferred since she had a normal one on 11/27/2018. 2. Self breast awareness was discussed with the patient. 3. Screening mammogram was recommended and the order slip was given to the patient for this. She has an appointment for this in October 2020. 4. Osteoporosis prevention was discussed. I have stressed the importance of adequate calcium, vitamin D and regular exercise. Recommended amounts of calcium and vitamin D were also discussed. We will consider starting bone density testing at approximately age 45-50. 5. She was instructed to call if she has postmenopausal vaginal bleeding. 6. We will continue on HRT at her current dose. The electronic prescription will be sent to my her pharmacy in [facility]. 7. She was advised to return in one year for her annual well woman exam.
== END | disposition home or self-care (01) ==
LOC: WWCWWP 09:17
PROVIDERS: ATTEND Obstetrics & Gynecology
DX: Z53.9 Procedure and treatment not carried out, unspecified reason (principal)

== ENCOUNTER → 2021-08-17 | Outpatient (CLI) | payer OTHER ==
[2021-08-17 13:44] VITALS: BP 99/64; PULSE 70; RESP 16; TEMP 98.2
--- NOTE | 2021-08-17 14:31 | P.HPOB ---
History of Present Illness H&P Date: 08/17/21 Chief Complaint: The patient is here for her routine gynecologic exam. This is a 40-year-old G0 with an LMP of 2018. The patient was found to be menopausal and this was confirmed with an elevated FSH in 2019. She is doing well on HRT which includes estradiol 1 mg and progesterone 200 mg daily. With this combination, she has not been having postmenopausal bleeding except when she didn't take her pills appropriately she had some spotting. She is without gynecologic complaints. She believes she will be moving to [place] in the upcoming year. Review of Systems The patient has gained 14 pounds over the last year. She denies respiratory, cardiac, or G.I. problems. Past Medical History Additional Past Medical History / Comment(s): bulging disk in lower back, degenerative disc disease, history of PVCs. 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 She has a history of endometriosis and is status post LSO and endometrioma in 2009. Early menopause in 2019. History of Any Multi-Drug Resistant Organisms: None Reported Additional Past Surgical History / Comment(s): Left OVARY, FALLOPIAN TUBE REMOVAL for endometriosis 2009. Laparoscopy with adhesiolysis 2017. Past Anesthesia/Blood Transfusion Reactions: No Reported Reaction Past Psychological History: Anxiety, Depression, PTSD Additional Psychological History / Comment(s): Patient has history of previous suicide attempts with mental health inpatient admissions. Smoking Status: Former smoker Past Alcohol Use History: None Reported Past Drug Use History: Cocaine, Marijuana, Prescription Drug Abuse Additional Drug Use History / Comment(s): Denies any current drug use for many years. - Past Family History Mother Family Medical History: AFIB, Congestive Heart Failure (CHF), COPD, Coronary Artery Disease (CAD), Dementia, Diabetes Mellitus Additional Family Medical History / Comment(s): Maternal aunt had breast cancer. Father History Unknown: Yes Medications and Allergies Home Medications Medication Instructions Recorded Confirmed Type Ibuprofen [Motrin] 800 mg PO TID PRN 09/29/17 08/17/21 History clonazePAM [KlonoPIN] 1 mg PO DAILY PRN 09/29/17 08/17/21 History Progesterone, Micronized 200 mg PO DAILY #90 capsule 09/02/20 08/17/21 Rx [Progesterone] estradioL [Estrace] 1.5 mg PO DAILY 90 Days #90 tab 09/09/20 08/17/21 Rx Menopausal Multivitamin 1 tab PO DAILY 08/17/21 08/17/21 History Mirtazapine [Remeron] 7.5 mg PO HS 08/17/21 08/17/21 History Allergies Allergy/AdvReac Type Severity Reaction Status Date / Time No Known Allergies Allergy Verified 08/17/21 13:03 Exam Vital Signs Temp Pulse Resp BP Pulse Ox 08/17/21 13:03 98.2 F 70 16 99/64 97 Intake and Output 08/16/21 08/17/21 08/17/21 22:59 06:59 14:59 Other: Weight 60.781 kg Height 5 feet 3-1/2 inches, weight 134 pounds, BMI 23.4. This is a well-developed well-nourished white female who is alert and oriented times 3 in no acute distress. HEENT: Within normal limits. NECK: Supple without mass or thyromegaly. CHEST AND LUNGS: Clear to auscultation. HEART: Regular rate and rhythm. BREASTS: Are without mass or discharge. AXILLARY EXAM: Negative for adenopathy. BACK: Negative for CVA tenderness. ABDOMEN: Soft, nontender, without palpable masses. PELVIC EXAM: Normal external genitalia. Cervix and vagina appear normal. There is no unusual discharge. There is no evidence of prolapse. The uterus is retroverted, nongravid size and nontender. There are no palpable adnexal masses or tenderness. RECTAL EXAM: negative for mass or tenderness and is negative for occult blood. EXTREMITIES: Nontender. IMPRESSION: 1. 40-year-old menopausal female doing well on HRT, with normal gynecologic exam. 2. History of previous LSO for benign reasons. PLAN: 1. Pap smear cotest was performed. 2. Self breast awareness was discussed with the patient. We have also discussed symptoms associated with inflammatory breast cancer. 3. Screening mammogram is scheduled for 08/19/2021. The order slip was given to the patient for this. 4. Osteoporosis prevention was discussed. I have stressed the importance of adequate calcium, vitamin D and regular exercise. Recommended amounts of calcium and vitamin D were also discussed. 5. Continue HRT. The electronic prescription will be sent to my her pharmacy in [facility]. 6. She was advised to return in one year for her annual well woman exam. If she does move to [place], she will establish with a burrer hand there.
== END ==
LOC: WWCWWP 12:50
PROVIDERS: ATTEND Obstetrics & Gynecology
DX: Z01.419 Encounter for gynecological examination (general) (routine) without abnormal findings (principal); N63.0 Unspecified lump in unspecified breast; F43.10 Post-traumatic stress disorder, unspecified; F41.9 Anxiety disorder, unspecified; F32.A Depression, unspecified; Z87.891 Personal history of nicotine dependence; Z79.890 Hormone replacement therapy

== ENCOUNTER → 2021-08-19 | Outpatient (CLI) | payer OTHER ==
--- NOTE | 2021-08-23 09:19 | MM ---
Reason for exam: screening (asymptomatic). Last mammogram was performed 8 years and 5 months ago. History: Patient is postmenopausal. Family history of breast cancer in maternal aunt at age 50. Taking estrogen beginning at age 39. Taking progesterone beginning at age 39. Physical Findings: A clinical breast exam by your physician is recommended on an annual basis and results should be correlated with mammographic findings. MG Screening Mammo w CAD Bilateral CC and MLO view(s) were taken. Prior study comparison: April 01, 2013, mammogram, performed at [facility]. The breast tissue is heterogeneously dense. This may lower the sensitivity of mammography. No significant changes when compared with prior studies. ASSESSMENT: Benign, BI-RAD 2 RECOMMENDATION: Routine screening mammogram of both breasts in 1 year.
== END | disposition home or self-care (01) ==
LOC: RADMAMWWP 15:05
PROVIDERS: ATTEND Obstetrics & Gynecology
DX: Z12.31 Encounter for screening mammogram for malignant neoplasm of breast (principal); Z78.0 Asymptomatic menopausal state; Z80.3 Family history of malignant neoplasm of breast
CPT/HCPCS: 77067

== ENCOUNTER 2023-03-04 06:50 | Emergency (ER) | payer OTHER ==
[2023-03-04 07:00] VITALS: TEMP 97.9
--- NOTE | 2023-03-04 07:33 | ED ---
General Adult HPI - General Chief complaint: ENT Stated complaint: Cough Time Seen by Provider: 03/04/23 07:10 Source: family, EMS Mode of arrival: EMS - History of Present Illness Initial comments: Dictation was produced using [email or web address] dictation software. please excuse any gr ammatical, word or spelling errors. Chief Complaint: 42-year-old female with cough History of Present Illness: Patient is a 42-year-old female she was brought in from home by EMS for cough congestion 1 week. She was seen by primary care physician was prescribed Augmentin. Also given some prednisone. States that her coughing is not improved. She was tested for Covid influenza however has not had the results for this yet. Patient denies any chest pain. States that the cough is nonproductive. Denies any fever or constitutional symptoms. The ROS documented in this emergency department record has been reviewed and confirmed by me. Those systems with pertinent positive or negative responses have been documented in the HPI. All other systems are other negative and/or no ncontributory. - Related Data Home Medications Medication Instructions Recorded Confirmed Ibuprofen [Motrin] 800 mg PO TID PRN 09/29/17 08/17/21 clonazePAM [KlonoPIN] 1 mg PO DAILY PRN 09/29/17 08/17/21 Menopausal Multivitamin 1 tab PO DAILY 08/17/21 08/17/21 Mirtazapine [Remeron] 7.5 mg PO HS 08/17/21 08/17/21 Previous Rx's Medication Instructions Recorded Progesterone, Micronized 200 mg PO DAILY #90 capsule 08/17/21 [Progesterone] estradioL [Estrace] 1 mg PO DAILY #90 tab 08/17/21 Albuterol Inhaler [Ventolin Hfa 1 - 2 puff INHALATION RT-Q6H PRN 03/04/23 Inhaler] #1 each Azithromycin [Zithromax Z Pack] 1 tab PO DIRECTED #6 tab 03/04/23 Benzonatate [Tessalon Perle] 100 mg PO TID PRN #24 capsule 03/04/23 Allergies Allergy/AdvReac Type Severity Reaction Status Date / Time No Known Allergies Allergy Verified 08/17/21 13:03 Review of Systems ROS Statement: Those systems with pertinent positive or pertinent negative responses have been documented in the HPI. ROS Other: All systems not noted in ROS Statement are negative. Past Medical History Additional Past Medical History / Comment(s): bulging disk in lower back, degenerative disc disease, history of PVCs. 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 She has a history of endometriosis and is status post LSO and endometrioma in 2010. Early menopause in 2019. History of Any Multi-Drug Resistant Organisms: None Reported Additional Past Surgical History / Comment(s): Left OVARY, FALLOPIAN TUBE REMOVAL for endometriosis 2009. Laparoscopy with adhesiolysis 2018. Past Anesthesia/Blood Transfusion Reactions: No Reported Reaction Past Psychological History: Anxiety, Depression, PTSD Smoking Status: Former smoker Past Alcohol Use History: None Reported Past Drug Use History: Cocaine, Marijuana, Prescription Drug Abuse - Past Family History Mother Family Medical History: AFIB, Congestive Heart Failure (CHF), COPD, Coronary Artery Disease (CAD), Dementia, Diabetes Mellitus Additional Family Medical History / Comment(s): Maternal aunt had breast cancer. Father History Unknown: Yes General Exam - General Exam Comments Initial Comments: PHYSICAL EXAM: General Impression: Alert and oriented x3, acute distress secondary to coughing HEENT: Normocephalic atraumatic, extra-ocular movements intact, pupils equal and reactive to light bilaterally, mucous membranes moist. Cardiovascular: Heart regular rate and rhythm Chest: Able to complete full sentences, no retractions, no tachypnea, clear to auscultation bilaterally Musculoskeletal: Pulses present and equal in all extremities, no peripheral edema Motor: no focal deficits noted Neurological: CN II-XII grossly intact, no focal motor or sensory deficits noted Skin: Intact with no visualized rashes Psych: Normal affect and mood Course Vital Signs 03/04/23 03/04/23 03/04/23 06:51 07:00 08:01 Temperature 97.9 F Pulse Rate 84 69 Respiratory 21 22 20 Rate Blood Pressure 135/87 133/93 O2 Sat by Pulse 95 96 Oximetry 03/04/23 03/04/23 09:15 09:23 Temperature Pulse Rate 84 80 Respiratory Rate Blood Pressure O2 Sat by Pulse Oximetry Medical Decision Making - Medical Decision Making Was pt. sent in by a medical professional or institution (, PA, LANGUAGE PATH, urgent care, hospital, or [facility]...) When possible be specific @ -No Did you speak to anyone other than the patient for history (EMS, parent, family, police, friend...)? What history was obtained from this source @ -No Did you review nursing and triage notes (agree or disagree)? Why? @ -I reviewed and agree with nursing and triage notes Were old charts reviewed (outside hosp., previous admission, EMS record, old EKG, old radiological studies, urgent care reports/EKG's, [facility] records)? Report findings @ -No old charts were reviewed Differential Diagnosis (chest pain, altered mental status, abdominal pain women, abdominal pain men, vaginal bleeding, musculoskeletal, weakness, fever, dyspnea, syncope, headache, dizziness, GI bleed, back pain, seizure, CVA, palpatations, mental health)? @ -Differential Dyspnea: Coronary syndrome, arrhythmia, tamponade, asthma, COPD, pulmonary embolism, pneumonia, pneumothorax, pulmonary effusion, anaphylaxis, diabetic ketoacidosis, flailed chest, pulmonary contusion, diaphragmatic rupture, anemia, neuromuscular, this is not meant to be an all-inclusive list. EKG interpreted by me (3pts min.). @ -None done X-rays interpreted by me (1pt min.). @ -2 view chest x-ray is unremarkable for an acute processes CT interpreted by me (1pt min.). @ -None done U/S interpreted by me (1pt. min.). @ -None done What testing was considered but not performed or refused? (CT, X-rays, U/S, labs)? Why? @ -None What meds were considered but not given or refused? Why? @ -None Did you discuss the management of the patient with other professionals (pr ofessionals i.e. , PA, LANGUAGE [facility], lab, RT, psych nurse, social science instructor, dry boss, teacher, custody officer, case checker)? Give summary @ -No Was smoking cessation discussed for >3mins.? @ -No Was critical care preformed (if so, how long)? @ -No Were there social determinants of health that impacted care today? How? (Homelessness, low income, unemployed, alcoholism, drug addiction, transport ation, low edu. Level, literacy, decrease access to med. care, penitentiary, rehab)? @ -No Was there de-escalation of care discussed even if they declined (Discuss DNR or withdrawal of care, Hospice)? DNR status @ -No What co-morbidities impacted this encounter? (DM, HTN, Smoking, COPD, CAD, Cancer, CVA, ARF, Chemo, Hep., AIDS, mental health diagnosis, sleep apnea, morbid obesity)? @ -None Was patient admitted / discharged? Hospital course, mention meds given and route, prescriptions, significant lab abnormalities, going to OR and other pertinent info. @ -42-year-old female presents emergency department for persistent cough. She was put on prednisone and Augmentin by her primary care doctor. Vital signs stable. Patient well-appearing she is having a dry cough at the bedside. X-ray and labs unremarkable. Viral testing is negative. Clinical presentation cons istent with acute bronchitis. Patient given Tessalon Perles, metered-dose inhaler, and azithromycin to be added to her diabetic regimen. Undiagnosed new problem with uncertain prognosis? @ -No Drug Therapy requiring intensive monitoring for toxicity (Heparin, Nitro, Insulin, Cardizem)? @ -No Were any procedures done? @ -No Diagnosis/symptom? Acute, or Chronic, or Acute on Chronic? Uncomplicated (without systemic symptoms) or Complicated (systemic symptoms)? @ -Acute bronchitis Side effects of treatment? @ -No Exacerbation, Progression, or Severe Exacerbation? @ -No Poses a threat to life or bodily function? How? (Chest pain, [place], [place], pneumonia, PE, COPD, DKA, ARF, appy, cholecystitis, CVA, Diverticulitis, Homicidal, Suicidal, threat to staff... and all critical care pts) @ -No - Lab Data Result diagrams: 03/04/23 07:59 03/04/23 07:59 Lab Results 03/04/23 03/04/23 03/04/23 Range/Units 07:59 07:59 07:59 WBC 10.7 H (3.8-10.6) k/uL RBC 4.26 (3.80-5.40) m/uL Hgb 13.5 (11.4-16.0) gm/dL Hct 39.2 (34.0-46.0) % MCV 92.1 (80.0-100.0) fL MCH 31.7 (25.0-35.0) pg MCHC 34.4 (31.0-37.0) g/dL RDW 12.6 (11.5-15.5) % Plt Count 228 (150-450) k/uL MPV 8.1 Neutrophils % 86 % Lymphocytes % 11 % Monocytes % 2 % Eosinophils % 0 % Basophils % 0 % Neutrophils # 9.2 H (1.3-7.7) k/uL Lymphocytes # 1.2 (1.0-4.8) k/uL Monocytes # 0.3 (0-1.0) k/uL Eosinophils # 0.0 (0-0.7) k/uL Basophils # 0.0 (0-0.2) k/uL Sodium 139 (137-145) mmol/L Potassium 3.6 (3.5-5.1) mmol/L Chloride 105 (98-107) mmol/L Carbon Dioxide 25 (22-30) mmol/L Anion Gap 9 mmol/L BUN 10 (7-17) mg/dL Creatinine 0.53 (0.52-1.04) mg/dL Est GFR (CKD-EPI)AfAm >90 (>60 ml/min/1.73 sqM) Est GFR (CKD-EPI)NonAf >90 (>60 ml/min/1.73 sqM) Glucose 113 H (74-99) mg/dL Calcium 8.9 (8.4-10.2) mg/dL Influenza Type A (PCR) Not Detected (Not Detectd) Influenza Type B (PCR) Not Detected (Not Detectd) RSV (PCR) Not Detected (Not Detectd) SARS-CoV-2 (PCR) Not Detected (Not Detectd) Disposition Clinical Impression: Bronchitis Disposition: HOME SELF-CARE Condition: Good Instructions (If sedation given, give patient instructions): Acute Bronchitis (ED) Prescriptions: Benzonatate [Tessalon Perle] 100 mg PO TID PRN #24 capsule PRN Reason: Cough Albuterol Inhaler [Ventolin Hfa Inhaler] 1 - 2 puff INHALATION RT-Q6H PRN #1 each PRN Reason: Dyspnea Azithromycin [Zithromax Z Pack] 1 tab PO DIRECTED #6 tab Is patient prescribed a controlled substance at d/c from ED?: No Referrals: Faye Strickland MD [Primary Care Provider] - 1-2 days Time of Disposition: 09:48
[2023-03-04] MEDS: IPRATROPIUM-ALBUTEROL 3 ML NEB INHALATION STA ×2 (07:49→09:13)
[2023-03-04 08:16] LABS: Basophils % (A) 0 %; Eosinophils % (A) 0 %; HCT 39.2 % (34.0-46.0); HGB 13.5 gm/dL (11.4-16.0); Lymphocytes # (A) 1.2 k/uL (1.0-4.8); Lymphocytes % (A) 11 %; MCH 31.7 pg (25.0-35.0); MCHC 34.4 g/dL (31.0-37.0); MCV 92.1 fL (80.0-100.0); Mean Platelet Volume 8.1; Monocytes # (A) 0.3 k/uL (0-1.0); Monocytes % (A) 2 %; Neutrophils # (A) 9.2 k/uL (1.3-7.7); Neutrophils % (A) 86 %; Platelet Count 228 k/uL (150-450); RBC 4.26 m/uL (3.80-5.40); RDW 12.6 % (11.5-15.5); WBC 10.7 k/uL (3.8-10.6)
--- NOTE | 2023-03-04 08:21 | XR ---
EXAMINATION TYPE: XR chest 2V DATE OF EXAM: 03/04/2023 COMPARISON: 07/14/2011 HISTORY: 42-year-old female with cough and congestion TECHNIQUE: PA and lateral views FINDINGS: The cardiomediastinal silhouette, aorta, and pulmonary vasculature are within normal limits. Lungs an d pleural spaces are clear. IMPRESSION: No acute cardiopulmonary process.
[2023-03-04 08:31] LABS: African American GFR (CKD) >90 (>60 ml/min/1.73 sqM); Anion Gap 9 mmol/L; Blood Urea Nitrogen 10 mg/dL (7-17); Calcium 8.9 mg/dL (8.4-10.2); Carbon Dioxide 25 mmol/L (22-30); Chloride 105 mmol/L (98-107); Glucose 113 mg/dL (74-99); Non-African American GFR(CKD) >90 (>60 ml/min/1.73 sqM); Potassium 3.6 mmol/L (3.5-5.1); Sodium 139 mmol/L (137-145)
[2023-03-04 09:57] VITALS: BP 125/95; PULSE 85; RESP 18
== END 2023-03-04 09:58 | disposition home or self-care (01) ==
LOC: EC 06:50
DX: J20.9 Acute bronchitis, unspecified (principal); F41.9 Anxiety disorder, unspecified; F32.A Depression, unspecified; Z79.899 Other long term (current) drug therapy; Z20.822 Contact with and (suspected) exposure to COVID-19; Z87.891 Personal history of nicotine dependence
CPT/HCPCS: 36415; 71046; 80048; 85025; 87636; 94640; 99284